=== PATIENT | female | born 1985 | race Caucasian/White ===

== ENCOUNTER 2016-09-30 15:03 | Inpatient (IN) | payer BC, OTHER ==
[2016-09-30] MEDS ORDERED: Sodium Chloride 0.9% 10 ML Syringe FLUSH PRN (15:04)
[2016-09-30] MEDS ORDERED: Ondansetron 4 MG/2 ML SDV IVPUSH PRN (15:04)
[2016-09-30] MEDS ORDERED: Acetaminophen 325 MG Tab PO PRN (15:04)
[2016-09-30] MEDS ORDERED: Nalbuphine 20 MG/1 ML Amp IVPUSH PRN (15:04)
--- NOTE | 2016-09-30 15:11 | PCM.LDHP ---
L&D History of Present Illness - General Date of Service: 09/30/16 Admit Problem/Dx: Patient Status Order with Admit Dx/Problem 09/30/16 15:05 Patient Status [ADT] Routine Admission Diagnosis/Problem Admission Diagnosis/Problem Normal Source of Information: Patient History Limitations: Reports: No limitations - History of Present Illness Introduction:: Patient is a 31-year-old at 39-4/7 weeks gestation who presents for elective induction of labor due to living greater than 1.5 hours from the hospital. She is doing well today with no specific concerns or complaints. 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: 1 LMP (Approximate): Social & Family History - Family History Family Medical History: Noncontributory - Tobacco Use Smoking Status *Q: Never Smoker - Alcohol Use Alcohol Use History: No - Recreational Drug Use Recreational Drug Use: No H&P Review of Systems - Review of Systems: Review Of Systems: See Below General: Reports: no symptoms Pulmonary: Reports: No Symptoms Cardiovascular: Reports: no symptoms Gastrointestinal: Reports: No symptoms Genitourinary: Reports: no symptoms Musculoskeletal: Reports: no symptoms Psychiatric: Reports: no symptoms L&D Exam - Exam Exam: See Below - OB Specific Contraction Intensity: Irritability movement: active heart tones: present heart tones per min: 130 Heart Rate (FHR) Variability: Moderate (6-25 bmp) Presentation: Vertex Estimated Weight: 8.25 - Hunt Score Hunt Score Cervix Position: Posterior Hunt Score Consistency: Soft Hunt Score Effacement: 51-70% Hunt Score Dilation: 3-4 cm Hunt Score 's Station: -1 ,0 Hunt Score Total: 8 - Exam General: alert, oriented, cooperative Lungs: Clear to auscultation, Normal respiratory effort Cardiovascular: regular rate, regular rhythm Abdomen: soft Genitourinary: Normal external exam Extremities: normal inspection Skin: warm, dry, intact - Problem List (1) 39 weeks gestation of SNOMED Code(s): 18463209 ICD Code: Z3A.39 - 39 WEEKS GESTATION OF Status: Acute Current Visit: Yes (2) Elective induction of labor planned SNOMED Code(s): 105204353 ICD Code: LIR4335 - Status: Acute Current Visit: Yes Problem List Initiated/Reviewed/Updated: Yes Orders Last 24hrs: Active Orders 24 hr Category Date Time Status Patient Status [ADT] Routine ADT 09/30/16 15:05 Ordered Communication Order [RC] ASDIRECTED Care 09/30/16 15:04 Ordered Communication Order [RC] ASDIRECTED Care 09/30/16 15:04 Ordered Communication Order [RC] ASDIRECTED Care 09/30/16 15:04 Ordered Notify Provider [RC] ASDIRECTED Care 09/30/16 15:04 Ordered Notify Provider [RC] PRN Care 09/30/16 15:04 Ordered Peripheral IV Care [RC] . DIRECTED Care 09/30/16 15:06 Ordered Up ad Orin [RC] ASDIRECTED Care 09/30/16 15:05 Ordered Vaginal Exam [RC] ASDIRECTED Care 09/30/16 15:04 Ordered Vital Signs [RC] ASDIRECTED Care 09/30/16 15:04 Ordered Vital Signs [RC] PER UNIT ROUTINE Care 09/30/16 15:04 Ordered Regular Diet [DIET] Diet 09/30/16 Dinner Ordered CBC W/O DIFF,HEMOGRAM [HEME] Routine Lab 09/30/16 15:04 Ordered TYPE AND SCREEN [BBK] Routine Lab 09/30/16 15:04 Ordered Acetaminophen [Tylenol] Med 09/30/16 15:04 Ordered 650 mg PO Q4H PRN Lactated Ringers [Ringers, Lactated] 1,000 ml Med 09/30/16 15:15 Ordered IV ASDIRECTED Nalbuphine [Nubain] Med 09/30/16 15:04 Ordered 10 mg IVPUSH Q2H PRN Ondansetron [Zofran] Med 09/30/16 15:04 Ordered 4 mg IVPUSH Q4H PRN Oxytocin/Lactated Ringers [Pitocin in LR 10 Units/1,000 Med 09/30/16 15:15 Ordered ML] 10 unit in 1,000 ml IV TITRATE Oxytocin/Lactated Ringers [Pitocin in LR 10 Units/1,000 Med 09/30/16 15:15 Ordered ML] 10 unit in 1,000 ml IV TITRATE Sodium Chloride 0.9% [Saline Flush] Med 09/30/16 15:04 Ordered 10 ml FLUSH ASDIRECTED PRN Electronic Heart Tones Internal [WOMSER] Per Unit Oth 09/30/16 15:04 Ordered Routine Peripheral IV Insertion Adult [OM.PC] Routine Oth 09/30/16 15:04 Ordered Resuscitation Status Routine Resus Stat 09/30/16 15:04 Ordered Assessment/Plan Comment:: 31-year-old at 39-4/7 weeks gestation presents for elective induction of labor * CBC and type and screen * GBS negative, no need for antibiotics * Pitocin with AROM as able * Pain management per patient preference * Anticipate
[2016-09-30] MEDS ORDERED: Oxytocin/Lactated Ringers 10 UNIT/1,000 ML BAG IV SCH ×2 (15:15)
[2016-09-30] MEDS: Lactated Ringers 1,000 ML IV SCH ×2 (15:45→21:15)
[2016-09-30] MEDS ORDERED: diphenhydrAMINE 50 MG/ML SDV IVPUSH PRN (19:36)
[2016-09-30] MEDS ORDERED: fentaNYL 100 MCG/2 ML SDV EPIDUR PRN (19:36)
[2016-09-30] MEDS ORDERED: ePHEDrine 50 MG/ML SDV IVPUSH PRN (19:36)
[2016-09-30] MEDS ORDERED: Bupivacaine/fentaNYL/NS 100 ML Bag EPIDUR SCH (19:45)
--- NOTE | 2016-09-30 20:12 | PCM.PREANE ---
Preanesthetic Assessment - Anesthesia/Transfusion/Family Hx Anesthesia History: Prior Anesthesia Without Reaction Family History of Anesthesia Reaction: No Transfusion History: No Prior Transfusion(s) - Review of Systems General: No Symptoms Pulmonary: No Symptoms Cardiovascular: No Symptoms Gastrointestinal: No symptoms Neurological: No Symptoms Other: Reports: None - Physical Assessment Pulse: 83 O2 Sat by Pulse Oximetry: 99 Respiratory Rate: 16 Blood Pressure: 115/66 Temperature: 37.5 C Vital Signs: Last Vital Signs Temp 37.5 C 09/30/16 15:04 Pulse 83 09/30/16 15:04 Resp 16 09/30/16 15:04 BP 115/66 09/30/16 15:04 Pulse Ox 99 09/30/16 15:04 Height: 1.69 m Weight: 85.82 kg ASA Class: 2 Mental Status: Alert & Oriented x3 Airway Class: Mallampati = 1 Dentition: Reports: Normal Dentition Thyro-Mental Finger Breadths: 3 Mouth Opening Finger Breadths: 3 ROM/Head Extension: Full Lungs: Clear to auscultation, Normal respiratory effort Cardiovascular: Regular Rate, Regular Rhythm - Lab Values: Laboratory Last Values WBC 13.93 K/mm3 (3.98-10.04) H 09/30/16 15:28 RBC 3.99 M/mm3 (3.98-5.22) 09/30/16 15:28 Hgb 11.3 gm/L (11.2-15.7) 09/30/16 15:28 Hct 34.7 % (34.1-44.9) 09/30/16 15:28 MCV 87.0 fl (79.4-94.8) 09/30/16 15:28 MCH 28.3 pg (25.6-32.2) 09/30/16 15:28 MCHC 32.6 g/dl (32.2-35.5) 09/30/16 15:28 RDW Std Deviation 48.1 fL (36.4-46.3) H 09/30/16 15:28 Plt Count 221 K/mm3 (182-369) 09/30/16 15:28 MPV 10.2 fl (9.4-12.3) 09/30/16 15:28 Blood Type A POSITIVE 09/30/16 15:28 Gel Antibody Screen Negative 09/30/16 15:28 - Allergies Allergies/Adverse Reactions: Allergies Allergy/AdvReac Type Severity Reaction Status Date / Time No Known Allergies Allergy Verified 09/30/16 15:43 - Anesthesia Plan Pre-Op Medication Ordered: None - Acknowledgements Anesthesia Type Planned: Epidural Pt an Appropriate Candidate for the Planned Anesthesia: Yes Alternatives and Risks of Anesthesia Discussed w Pt/Guardian: Yes Pt/Guardian Understands and Agrees with Anesthesia Plan: Yes PreAnesthesia Questionnaire - Past Health History Medical/Surgical History: Denies Medical/Surgical History [employer]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 [No Known Home Meds] 09/30/16 [History] - CURRENT (IN HOUSE) MEDS Current Meds: Current Medications Acetaminophen (Tylenol) 650 mg PO Q4H PRN PRN Reason: Pain (Mild 1-3) and fever Diphenhydramine HCl (Benadryl) 25 mg IVPUSH Q6H PRN PRN Reason: Itching Ephedrine Sulfate (Ephedrine Sulfate) 5 mg IVPUSH ASDIRECTED PRN PRN Reason: HYPOTENTSION Fentanyl (Sublimaze) 100 mcg EPIDUR Q3H PRN PRN Reason: PAIN Last Admin: 09/30/16 20:00 Dose: 100 mcg Fentanyl/Bupivacaine HCl (Fentanyl/Bupivacaine/Ns 2 Mcg-0.125% 100 Ml) 100 ml EPIDUR ASDIRECTED SARAH BETH Lactated Ringer's (Ringers, Lactated) 1,000 mls @ 40 mls/hr IV ASDIRECTED SARAH BETH Last Admin: 09/30/16 15:45 Dose: 40 mls/hr Oxytocin/Lactated Ringer's (Pitocin In Lr 10 Units/1,000 Ml) 10 unit in 1,000 mls @ 500 mls/hr IV TITRATE SARAH BETH PRN Reason: Protocol Oxytocin/Lactated Ringer's (Pitocin In Lr 10 Units/1,000 Ml) 10 unit in 1,000 mls @ 12 mls/hr IV TITRATE SARAH BETH; 2 MUNITS/MIN PRN Reason: Protocol Last Titration: 09/30/16 17:50 Dose: 4 munits/min, 24 mls/hr Nalbuphine HCl (Nubain) 10 mg IVPUSH Q2H PRN PRN Reason: Pain (moderate 4-6) Ondansetron HCl (Zofran) 4 mg IVPUSH Q4H PRN PRN Reason: Nausea/Vomiting Sodium Chloride (Saline Flush) 10 ml FLUSH ASDIRECTED PRN PRN Reason: Keep Vein Open Preanesthetic Assessment - ANESTHESIA/TRANSFUSION/FAMILY HX Family History of Anesthesia Reaction: No - PHYSICAL ASSESSMENT O2 Sat by Pulse Oximetry: 99 RR: 16 Vital Signs: Last Vital Signs Temp 37.5 C 09/30/16 15:04 Pulse 83 09/30/16 15:04 Resp 16 09/30/16 15:04 BP 115/66 09/30/16 15:04 Pulse Ox 99 09/30/16 15:04 Height: 1.69 m Weight: 85.82 kg - LAB Values: Laboratory Last Values WBC 13.93 K/mm3 (3.98-10.04) H 09/30/16 15:28 RBC 3.99 M/mm3 (3.98-5.22) 09/30/16 15:28 Hgb 11.3 gm/L (11.2-15.7) 09/30/16 15:28 Hct 34.7 % (34.1-44.9) 09/30/16 15:28 MCV 87.0 fl (79.4-94.8) 09/30/16 15:28 MCH 28.3 pg (25.6-32.2) 09/30/16 15:28 MCHC 32.6 g/dl (32.2-35.5) 09/30/16 15:28 RDW Std Deviation 48.1 fL (36.4-46.3) H 09/30/16 15:28 Plt Count 221 K/mm3 (182-369) 09/30/16 15:28 MPV 10.2 fl (9.4-12.3) 09/30/16 15:28 Blood Type A POSITIVE 09/30/16 15:28 Gel Antibody Screen Negative 09/30/16 15:28 - ALLERGIES Allergies/Adverse Reactions: Allergies Allergy/AdvReac Type Severity Reaction Status Date / Time No Known Allergies Allergy Verified 09/30/16 15:43
[2016-09-30] MEDS ORDERED: Bupivacaine 0.25% 10 ML SDV ONE (22:22)
--- NOTE | 2016-09-30 22:57 | PCM.DEL ---
L & D Note - General Info Date of Service: 09/30/16 - Delivery Note Labor: spontaneous Delivery Outcome: Livebirth Delivery Method: Spontaneous Vaginal Delivery Delivery Mode: Spontaneous Presentation: Right Occiput Anterior (SUSHILA) Nuchal cord: none Anesthesia Type: Epidural Amniotic Fluid Description: Clear Episiotomy Type: None Laceration: 2nd degree Suture type: vicryl Suture size: 2-0 Placenta: intact, spontaneous Cord: 3 vessels Estimated blood loss: 250 Resuscitation needed: Yes : bulb syringe Score 1 min: 8 Score 5 min: 9 Delivery Comments (Free Text/Narrative):: Patient found to be complete and began pushing. With maternal pushing effort head delivered from an SUSHILA presentation. No nuchal cord present. With gentle downward traction the shoulders and body delivered. placed on maternal abdomen. Cord clamped and cut. Cord blood obtained. Placenta allowed time to separate and then spontaneously expelled. Inspection of the perineum showed a 2nd degree laceration which was repaired in the typical fashion. - Patient Data Vitals - most recent: Last Vital Signs Temp 37.5 C 09/30/16 20:12 Pulse 83 09/30/16 20:12 Resp 16 09/30/16 20:12 BP 115/66 09/30/16 20:12 Pulse Ox 99 09/30/16 20:12 Weight - most recent: 85.82 kg Lab Results last 24 hrs: Laboratory Results - last 24 hr 09/30/16 09/30/16 Range/Units 15:28 15:28 WBC 13.93 H (3.98-10.04) K/mm3 RBC 3.99 (3.98-5.22) M/mm3 Hgb 11.3 (11.2-15.7) gm/L Hct 34.7 (34.1-44.9) % MCV 87.0 (79.4-94.8) fl MCH 28.3 (25.6-32.2) pg MCHC 32.6 (32.2-35.5) g/dl RDW Std Deviation 48.1 H (36.4-46.3) fL Plt Count 221 (182-369) K/mm3 MPV 10.2 (9.4-12.3) fl Blood Type A POSITIVE Gel Antibody Screen Negative Med Orders - Current: Current Medications Acetaminophen (Tylenol) 650 mg PO Q4H PRN PRN Reason: Pain (Mild 1-3) and fever Diphenhydramine HCl (Benadryl) 25 mg IVPUSH Q6H PRN PRN Reason: Itching Ephedrine Sulfate (Ephedrine Sulfate) 5 mg IVPUSH ASDIRECTED PRN PRN Reason: HYPOTENTSION Fentanyl (Sublimaze) 100 mcg EPIDUR Q3H PRN PRN Reason: PAIN Last Admin: 09/30/16 20:00 Dose: 100 mcg Fentanyl/Bupivacaine HCl (Fentanyl/Bupivacaine/Ns 2 Mcg-0.125% 100 Ml) 100 ml EPIDUR ASDIRECTED SARAH BETH Last Admin: 09/30/16 20:15 Dose: 100 ml Lactated Ringer's (Ringers, Lactated) 1,000 mls @ 40 mls/hr IV ASDIRECTED SARAH BETH Last Admin: 09/30/16 21:15 Dose: 40 mls/hr Oxytocin/Lactated Ringer's (Pitocin In Lr 10 Units/1,000 Ml) 10 unit in 1,000 mls @ 500 mls/hr IV TITRATE SARAH BETH PRN Reason: Protocol Oxytocin/Lactated Ringer's (Pitocin In Lr 10 Units/1,000 Ml) 10 unit in 1,000 mls @ 12 mls/hr IV TITRATE SARAH BETH; 2 MUNITS/MIN PRN Reason: Protocol Last Titration: 09/30/16 17:50 Dose: 4 munits/min, 24 mls/hr Nalbuphine HCl (Nubain) 10 mg IVPUSH Q2H PRN PRN Reason: Pain (moderate 4-6) Ondansetron HCl (Zofran) 4 mg IVPUSH Q4H PRN PRN Reason: Nausea/Vomiting Sodium Chloride (Saline Flush) 10 ml FLUSH ASDIRECTED PRN PRN Reason: Keep Vein Open - Problem List & Annotations (1) 39 weeks gestation of SNOMED Code(s): 39880947 Code(s): Z3A.39 - 39 WEEKS GESTATION OF Status: Acute Current Visit: Yes (2) Elective induction of labor planned SNOMED Code(s): 428107433 Code(s): JSB5307 - Status: Acute Current Visit: Yes (3) Vaginal delivery SNOMED Code(s): 780240772 Code(s): O80 - ENCOUNTER FOR FULL-TERM UNCOMPLICATED DELIVERY Status: Acute Current Visit: Yes - Problem List Review Problem List Initiated/Reviewed/Updated: Yes - My Orders Last 24 Hours: My Active Orders 09/30/16 15:04 Communication Order [RC] ASDIRECTED Communication Order [RC] ASDIRECTED Communication Order [RC] ASDIRECTED Notify Provider [RC] ASDIRECTED Notify Provider [RC] PRN Vital Signs [RC] ASDIRECTED Acetaminophen [Tylenol] 650 mg PO Q4H PRN Nalbuphine [Nubain] 10 mg IVPUSH Q2H PRN Ondansetron [Zofran] 4 mg IVPUSH Q4H PRN Sodium Chloride 0.9% [Saline Flush] 10 ml FLUSH ASDIRECTED PRN Electronic Heart Tones Internal [WOMSER] Per Unit Routine Peripheral IV Insertion Adult [OM.PC] Routine Resuscitation Status Routine 09/30/16 15:05 Patient Status [ADT] Routine Up ad Orin [RC] ASDIRECTED 09/30/16 15:06 Peripheral IV Care [RC] . DIRECTED 09/30/16 15:15 Lactated Ringers [Ringers, Lactated] 1,000 ml IV ASDIRECTED Oxytocin/Lactated Ringers [Pitocin in LR 10 Units/1,000 ML] 10 unit in 1,000 ml IV TITRATE Oxytocin/Lactated Ringers [Pitocin in LR 10 Units/1,000 ML] 10 unit in 1,000 ml IV TITRATE 09/30/16 Dinner Regular Diet [DIET] - Assessment Assessment:: 31-year-old G2 now P2 now PPD#0 from at 39-4/7 weeks - Plan Plan:: * Routine cares * Encourage breast feeding * Discharge home in 1-2 days
[2016-10-01] MEDS ORDERED: Docusate Sodium 100 MG Cap PO PRN (01:08)
[2016-10-01] MEDS ORDERED: Lanolin 100% Cream 7 GM Tube TOP PRN (01:08)
[2016-10-01] MEDS ORDERED: Acetaminophen 325 MG Tab PO PRN (01:08)
[2016-10-01] MEDS ORDERED: Witch Hazel Medicated Pads 100/Jar TOP PRN (01:08)
[2016-10-01] MEDS ORDERED: Benzocaine/Menthol 20%-0.5% Spray 56 GM Canister TOP PRN (01:08)
[2016-10-01] MEDS: Ibuprofen 600 MG Tab PO PRN ×2 (02:07→20:05)
--- NOTE | 2016-10-01 07:11 | PCM.PNPP ---
- General Info Date of Service: 10/01/16 Functional Status: Reports: pain controlled, tolerating diet, ambulating, urinating - Review of Systems General: Reports: No Symptoms Pulmonary: Reports: no symptoms Cardiovascular: Reports: No Symptoms Gastrointestinal: Reports: No symptoms Genitourinary: Reports: no symptoms Musculoskeletal: Reports: no symptoms Neurological: Reports: No Symptoms - Patient Data Vital Signs - most recent: Last Vital Signs Temp 37.5 C 09/30/16 20:12 Pulse 83 09/30/16 20:12 Resp 16 09/30/16 20:12 BP 115/66 09/30/16 20:12 Pulse Ox 99 09/30/16 20:12 Weight - most recent: 85.82 kg Lab Results - last 24 hrs: Laboratory Results - last 24 hr 09/30/16 09/30/16 Range/Units 15:28 15:28 WBC 13.93 H (3.98-10.04) K/mm3 RBC 3.99 (3.98-5.22) M/mm3 Hgb 11.3 (11.2-15.7) gm/L Hct 34.7 (34.1-44.9) % MCV 87.0 (79.4-94.8) fl MCH 28.3 (25.6-32.2) pg MCHC 32.6 (32.2-35.5) g/dl RDW Std Deviation 48.1 H (36.4-46.3) fL Plt Count 221 (182-369) K/mm3 MPV 10.2 (9.4-12.3) fl Blood Type A POSITIVE Gel Antibody Screen Negative Med Orders - Current: Current Medications Acetaminophen (Tylenol) 650 mg PO Q4H PRN PRN Reason: mild pain or fever Benzocaine/Menthol (Dermoplast Pain Relief [place]) 0 gm TOP ASDIRECTED PRN PRN Reason: Perineal Comfort Measure Last Admin: 10/01/16 02:06 Dose: 1 can Docusate Sodium (Colace) 100 mg PO BID PRN PRN Reason: Constipation Emollient Ointment (Lansinoh Hpa) 0 gm TOP ASDIRECTED PRN PRN Reason: Sore Nipples Ibuprofen (Motrin) 600 mg PO Q4H PRN PRN Reason: Mild pain or fever Last Admin: 10/01/16 02:07 Dose: 600 mg Witch Carie (Tucks) 1 pad TOP ASDIRECTED PRN PRN Reason: Hemorrhoid pain Last Admin: 10/01/16 02:07 Dose: 1 can Discontinued Medications Acetaminophen (Tylenol) 650 mg PO Q4H PRN PRN Reason: Pain (Mild 1-3) and fever Diphenhydramine HCl (Benadryl) 25 mg IVPUSH Q6H PRN PRN Reason: Itching Ephedrine Sulfate (Ephedrine Sulfate) 5 mg IVPUSH ASDIRECTED PRN PRN Reason: HYPOTENTSION Fentanyl (Sublimaze) 100 mcg EPIDUR Q3H PRN PRN Reason: PAIN Last Admin: 09/30/16 20:00 Dose: 100 mcg Fentanyl/Bupivacaine HCl (Fentanyl/Bupivacaine/Ns 2 Mcg-0.125% 100 Ml) 100 ml EPIDUR ASDIRECTED SARAH BETH Last Admin: 09/30/16 20:15 Dose: 100 ml Lactated Ringer's (Ringers, Lactated) 1,000 mls @ 40 mls/hr IV ASDIRECTED SARAH BETH Last Admin: 09/30/16 21:15 Dose: 40 mls/hr Oxytocin/Lactated Ringer's (Pitocin In Lr 10 Units/1,000 Ml) 10 unit in 1,000 mls @ 500 mls/hr IV TITRATE SARAH BETH PRN Reason: Protocol Oxytocin/Lactated Ringer's (Pitocin In Lr 10 Units/1,000 Ml) 10 unit in 1,000 mls @ 12 mls/hr IV TITRATE SARAH BETH; 2 MUNITS/MIN PRN Reason: Protocol Last Titration: 09/30/16 17:50 Dose: 4 munits/min, 24 mls/hr Nalbuphine HCl (Nubain) 10 mg IVPUSH Q2H PRN PRN Reason: Pain (moderate 4-6) Ondansetron HCl (Zofran) 4 mg IVPUSH Q4H PRN PRN Reason: Nausea/Vomiting Sodium Chloride (Saline Flush) 10 ml FLUSH ASDIRECTED PRN PRN Reason: Keep Vein Open - Infant Interaction Infant Disposition, : [place] in Room with Family Interaction: Holding Infant Feeding: Other (see below) (Pumping and feeding via bottle ) Support Person: - Recovery Exam Fundal Tone: Firm Fundal Level: At Umbilicus Fundal Placement: Midline Lochia Amount: Small Lochia Color: Rubra/Red Episiotomy/Laceration: Approximated Bladder Status: Voiding - Exam General: alert, oriented, cooperative Abdomen: soft, no tenderness Extremities: no edema Skin: warm, dry, intact - Problem List & Annotations (1) 39 weeks gestation of SNOMED Code(s): 31938087 Code(s): Z3A.39 - 39 WEEKS GESTATION OF Status: Acute Current Visit: Yes (2) Elective induction of labor planned SNOMED Code(s): 811256601 Code(s): RME8593 - Status: Acute Current Visit: Yes (3) Vaginal delivery SNOMED Code(s): 387124537 Code(s): O80 - ENCOUNTER FOR FULL-TERM UNCOMPLICATED DELIVERY Status: Acute Current Visit: Yes - Problem List Review Problem List Initiated/Reviewed/Updated: Yes - My Orders Last 24 Hours: My Active Orders 09/30/16 15:04 Resuscitation Status Routine 10/01/16 01:08 Activity as Tolerated [RC] PER UNIT ROUTINE Vital Signs [RC] ASDIRECTED Acetaminophen [Tylenol] 650 mg PO Q4H PRN Benzocaine/Menthol [Dermoplast Pain Relief [place]] See Dose Instructions TOP ASDIRECTED PRN Docusate Sodium [Colace] 100 mg PO BID PRN Ibuprofen [Motrin] 600 mg PO Q4H PRN Lanolin [Lansinoh HPA] See Dose Instructions TOP ASDIRECTED PRN Witch Carie [Tucks] 1 pad TOP ASDIRECTED PRN Assess Lochia [WOMSER] Per Unit Routine Assess Uterine Involution [WOMSER] Per Unit Routine Breast Pump [WOMSER] Per Unit Routine Heat Therapy [OM.PC] PRN Ice Therapy [OM.PC] Per Unit Routine Perineal Care [OM.PC] Per Unit Routine Sitz Bath [OM.PC] Per Unit Routine 10/01/16 Breakfast Regular Diet [DIET] 10/02/16 01:08 Heat Therapy [OM.PC] PRN - Assessment Assessment:: 31-year-old G2 now P2 now PPD#1 from at 39-4/7 weeks - Plan Plan:: * Routine cares * Encourage breast feeding * Discharge home today vs tomorrow depending upon clinical course
--- NOTE | 2016-10-01 07:48 | PCM48HPAN ---
Post Anesthesia Note - EVALUATION WITHIN 48HRS OF ANESTHETIC Vital Signs in Normal Range: Yes Patient Participated in Evaluation: Yes Respiratory Function Stable: Yes Airway Patent: Yes Cardiovascular Function Stable: Yes Hydration Status Stable: Yes Pain Control Satisfactory: Yes Nausea and Vomiting Control Satisfactory: Yes Mental Status Recovered: Yes
--- NOTE | 2016-10-01 07:56 | PCM.DCSUM1 ---
Discharge Summary - Discharge Data Discharge Date: 10/01/16 Discharge Disposition: Home, Self-Care 01 Condition: Good - Discharge Diagnosis/Problem(s) (1) 39 weeks gestation of SNOMED Code(s): 77234129 ICD Code: Z3A.39 - 39 WEEKS GESTATION OF Status: Acute (2) Elective induction of labor planned SNOMED Code(s): 678062329 ICD Code: FPI6430 - Status: Acute (3) Vaginal delivery SNOMED Code(s): 732354443 ICD Code: O80 - ENCOUNTER FOR FULL-TERM UNCOMPLICATED DELIVERY Status: Acute - Patient Summary/Data Complications: None Consults: None Recommended Follow-up Testing/Procedures: Follow up with Dr. Toney in 5-6 weeks for check Hospital Course: 31 y/o admitted at 39 4/7 wks for elective IOL. This was done with AROM and pitocin. She progressed to complete dilation and underwent an uncomplicated . See delivery note. she did well and was discharged home on PPD#1. - Patient Instructions Diet: Regular Diet as Tolerated Activity: As Tolerated Activity, Other: Pelvic Rest for 6 weeks Driving: May Drive Today Showering/Bathing: May Shower Showering/Bathing, Other: May Bathe Notify Provider of: Fever, Increased Pain, Drainage, Nausea and/or Vomiting - Discharge Plan Home Medications: Home Meds Ibuprofen [IJD: Ibuprofen] 600 mg PO Q4H PRN #0 tablet 10/01/16 [Rx] Patient Handouts: Depression and Baby Blues, Vaginal Delivery, Care After, Pelvic Rest Referrals: Lani Toney MD [Physician] - (5-6 weeks for exam ) - Discharge Summary/Plan Comment DC Time >30 min.: No - Patient Data Vitals - Most Recent: Last Vital Signs Temp 37.5 C 09/30/16 20:12 Pulse 83 09/30/16 20:12 Resp 16 09/30/16 20:12 BP 115/66 09/30/16 20:12 Pulse Ox 99 09/30/16 20:12 Weight - Most Recent: 85.82 kg Lab Results - Last 24 hrs: Laboratory Results - last 24 hr 09/30/16 09/30/16 Range/Units 15:28 15:28 WBC 13.93 H (3.98-10.04) K/mm3 RBC 3.99 (3.98-5.22) M/mm3 Hgb 11.3 (11.2-15.7) gm/L Hct 34.7 (34.1-44.9) % MCV 87.0 (79.4-94.8) fl MCH 28.3 (25.6-32.2) pg MCHC 32.6 (32.2-35.5) g/dl RDW Std Deviation 48.1 H (36.4-46.3) fL Plt Count 221 (182-369) K/mm3 MPV 10.2 (9.4-12.3) fl Blood Type A POSITIVE Gel Antibody Screen Negative Med Orders - Current: Current Medications Acetaminophen (Tylenol) 650 mg PO Q4H PRN PRN Reason: mild pain or fever Benzocaine/Menthol (Dermoplast Pain Relief [place]) 0 gm TOP ASDIRECTED PRN PRN Reason: Perineal Comfort Measure Last Admin: 10/01/16 02:06 Dose: 1 can Docusate Sodium (Colace) 100 mg PO BID PRN PRN Reason: Constipation Emollient Ointment (Lansinoh Hpa) 0 gm TOP ASDIRECTED PRN PRN Reason: Sore Nipples Ibuprofen (Motrin) 600 mg PO Q4H PRN PRN Reason: Mild pain or fever Last Admin: 10/01/16 02:07 Dose: 600 mg Witch Carie (Tucks) 1 pad TOP ASDIRECTED PRN PRN Reason: Hemorrhoid pain Last Admin: 10/01/16 02:07 Dose: 1 can Discontinued Medications Acetaminophen (Tylenol) 650 mg PO Q4H PRN PRN Reason: Pain (Mild 1-3) and fever Diphenhydramine HCl (Benadryl) 25 mg IVPUSH Q6H PRN PRN Reason: Itching Ephedrine Sulfate (Ephedrine Sulfate) 5 mg IVPUSH ASDIRECTED PRN PRN Reason: HYPOTENTSION Fentanyl (Sublimaze) 100 mcg EPIDUR Q3H PRN PRN Reason: PAIN Last Admin: 09/30/16 20:00 Dose: 100 mcg Fentanyl/Bupivacaine HCl (Fentanyl/Bupivacaine/Ns 2 Mcg-0.125% 100 Ml) 100 ml EPIDUR ASDIRECTED SARAH BETH Last Admin: 03/30/17 20:15 Dose: 100 ml Lactated Ringer's (Ringers, Lactated) 1,000 mls @ 40 mls/hr IV ASDIRECTED SARAH BETH Last Admin: 09/30/16 21:15 Dose: 40 mls/hr Oxytocin/Lactated Ringer's (Pitocin In Lr 10 Units/1,000 Ml) 10 unit in 1,000 mls @ 500 mls/hr IV TITRATE SARAH BETH PRN Reason: Protocol Oxytocin/Lactated Ringer's (Pitocin In Lr 10 Units/1,000 Ml) 10 unit in 1,000 mls @ 12 mls/hr IV TITRATE SARAH BETH; 2 MUNITS/MIN PRN Reason: Protocol Last Titration: 09/30/16 17:50 Dose: 4 munits/min, 24 mls/hr Nalbuphine HCl (Nubain) 10 mg IVPUSH Q2H PRN PRN Reason: Pain (moderate 4-6) Ondansetron HCl (Zofran) 4 mg IVPUSH Q4H PRN PRN Reason: Nausea/Vomiting Sodium Chloride (Saline Flush) 10 ml FLUSH ASDIRECTED PRN PRN Reason: Keep Vein Open *Q Meaningful Use (DIS) - VTE *Q VTE Criteria *Q: - Stroke *Q Stroke Criteria *Q: - AMI *Q AMI Criteria *Q:
[2016-10-01 20:10] VITALS: BP 111/66
== END 2016-10-01 22:55 | disposition home or self-care (01) | DRG 560 ==
LOC: JD.OBCHECK 15:03 → JD.OB 15:04 → JD.OBCHECK 15:05 → JD.OB 15:05 → OBSVTOIN 22:35
PROVIDERS: ADMIT Obstetrics & Gynecology; ATTEND Obstetrics & Gynecology
PROC: 10E0XZZ Delivery of Products of Conception, External Approach (ICD-10-PCS; principal; 2016-09-30)
PROC: 3E033VJ Introduction of Other Hormone into Peripheral Vein, Percutaneous Approach (ICD-10-PCS; 2016-09-30)
PROC: 10907ZC Drainage of Amniotic Fluid, Therapeutic from Products of Conception, Via Natural or Artificial Opening (ICD-10-PCS; 2016-09-30)
PROC: 0KQM0ZZ Repair Perineum Muscle, Open Approach (ICD-10-PCS; 2016-09-30)
PROC: 00HU33Z Insertion of Infusion Device into Spinal Canal, Percutaneous Approach (ICD-10-PCS; 2016-09-30)
PROC: 3E0R3CZ (ICD-10-PCS; 2016-09-30)
DX: O70.1 Second degree perineal laceration during delivery (principal); Z3A.40 40 weeks gestation of pregnancy; Z37.0 Single live birth
CPT/HCPCS: 36415; 85027; 86850; 86900; 86901; A9270-GY; J2590; J3010; J7120